=== PATIENT | female | born 1945 | race Caucasian/White ===

== ENCOUNTER 2019-09-09 05:14 | Emergency (ER) | payer MEDICARE ==
[2019-09-09] MEDS ORDERED: EPINEPHRINE INJ/PF 1 MG/1 ML AMPULE IM ONE (05:18)
--- NOTE | 2019-09-09 05:20 | ER Document Report ---
ED Allergic Reaction - General Chief Complaint: Allergic Reaction Stated Complaint: POSSIBLE ALLERGIC REACTION Time Seen by Provider: 09/09/19 05:18 Primary Care Provider: DMITRIY PATTON PA [Primary Care Provider] - Follow up as needed Notes: Patient is a 73-year-old female that comes emergency department for chief complaint of allergic reaction. She states she was sitting on her porch and she was stung by multiple insects, she states she started getting puffiness along her hands where she thinks she was stung, she also noticed a little bit on her ankles, she is also started getting puffiness around her eyes and started feeling tightness of the throat with difficulty swallowing. She states after she was stung initially she did not have the face or throat symptoms, she took 50 mg of Benadryl. A couple of hours later she took 100 mg of Benadryl. Coming by EMS she received ranitidine and Solu-Medrol. Patient denies difficulty breathing, she states she feels slightly better than she did earlier this evenin g but she still has a sensation of tightness in her throat and puffiness of the face. She states she has had similar reactions except for the throat with insect stings multiple times. She has a history of hypertension, denies any cardiac history, denies any medical history otherwise. - Related Data Allergies/Adverse Reactions: No Known Allergies Allergy (Unverified 09/09/19 05:28) Past Medical History - General Information source: Patient - Social History Smoking Status: Never Smoker Frequency of alcohol use: None Drug Abuse: None Lives with: Family Family History: Reviewed & Not Pertinent - Past Medical History Cardiac Medical History: Reports: Hx Hypertension - Immunizations Immunizations up to date: Yes Hx Diphtheria, Pertussis, Tetanus Vaccination: Yes Review of Systems - Review of Systems Constitutional: No symptoms reported EENT: See HPI Cardiovascular: No symptoms reported Respiratory: No symptoms reported Gastrointestinal: No symptoms reported Genitourinary: No symptoms reported Female Genitourinary: No symptoms reported Musculoskeletal: See HPI Skin: See HPI Hematologic/Lymphatic: No symptoms reported Neurological/Psychological: No symptoms reported Physical Exam - Vital signs Vitals: Temp 97.9 F 09/09/19 05:18 - Notes Notes: GENERAL: Alert, interacts well. No acute distress. HEAD: Normocephalic, atraumatic. EYES: Pupils equal, round, and reactive to light. Extraocular movements intact. Eyelids are slightly puffy, especially upper eyelids. ENT: Oral mucosa parched, tongue midline. Oropharynx unremarkable. Airway patent and uvula is normal. Nares patent, sinuses non-tender, ear canals unremarkable, TM's intact. NECK: Full range of motion. Supple. Trachea midline. No lymphadenopathy. LUNGS: Clear to auscultation bilaterally, no wheezes, rales, or rhonchi. No respiratory distress. Non-tender chest wall. HEART: Regular rate and rhythm. No murmur ABDOMEN: Soft, non-tender. Non-distended. Bowel sounds present in all 4 quadrants. GENITOURINARY: Deferred EXTREMITIES: Moves all 4 extremities spontaneously. No edema of upper and lower extremities, normal radial and dorsalis pedis pulses bilaterally. No cyanosis. BACK: no cervical, thoracic, lumbar midline tenderness. No saddle anesthesia, normal distal neurovascular exam. Moves all extremities in full range of motion. NEUROLOGICAL: Alert and oriented x3. Normal speech. Cranial nerves II through XII grossly intact. Strength 5/5 in all extremities. PSYCH: Normal affect, normal mood. SKIN: Warm, dry, normal turgor. No rashes or lesions noted. Specifically no urticaria. Course - Re-evaluation Re-evalutation: Airway appears patent, patient is tolerating her secretions, no wheezing, patient does not appear to be in distress. Patient does have puffy upper eyelids and she is complaining of a sensation of difficulty swallowing. No rashes noted, patient states her hands are puffy, no edema. Because of her difficulty swallowing with puffy eyelids patient was given epinephrine, patient has no cardiac history. Patient is already had a large amount of type I antihistamines, she has received ranitidine from EMS, she is received Solu-Medro l. Patient will be closely reevaluated. On initial reevaluation patient appears slightly improved in regards to her eyelids. She still states that it feels like it is hard to swallow but she denies swelling sensation. Patient is extremely parched after her large amount of Benadryl, I feel this is a component, she will continue to be observed. 09/09/19 06:50 This is patient's second reevaluation. Patient no longer has any tightness in her throat, her eyelids are no longer puffy, she still has slight puffiness in her cheeks that is slightly more obvious now that the rest of her symptoms have resolved, no other concerning findings. Patient will be monitored to make sure the epinephrine does not wear off and patient has return of symptoms, after this patient will be discharged with steroids and antihistamines. Patient states she already has an EpiPen at home for use if needed. 09/09/19 07:37 Patient has been here for about 2 and half hours now including after initial treatment. Facial swelling has essentially resolved, patient has not had any additional symptoms, patient has no current complaints. Patient is requesting to be discharged home, discussed medications, expectations, and return precautions in detail. Patient states appreciation and agreement with plan. - Vital Signs Vital signs: Temp Pulse Resp BP Pulse Ox 97.9 F 14 152/76 H 99 09/09/19 05:18 09/09/19 06:33 09/09/19 06:33 09/09/19 06:33 Discharge - Discharge Clinical Impression: Allergic reaction Qualifiers: Encounter type: initial encounter Qualified Code(s): T78.40XA - Allergy, unspecified, initial encounter Insect sting Qualifiers: Encounter type: initial encounter Injury intent: accidental or unintentional Qualified Code(s): T63.481A - Toxic effect of venom of other arthropod, accidental (unintentional), initial encounter Condition: Stable Disposition: HOME, SELF-CARE Additional Instructions: Your evaluation is consistent with an allergic reaction from the insect sting. Recommendation is to take the steroids as prescribed to completion. Also take the famotidine daily for 1 week along with your Zyrtec daily. Follow-up with primary care. In the event of a severe allergic reaction (swelling of the face, lips, tongue, throat, difficulty breathing, etc.), take your EpiPen and return to the emergency department immediately. Prescriptions: Prednisone [Deltasone 10 mg Tablet] 10 mg PO ASDIR PRN #21 tablet PRN Reason: Famotidine [Pepcid 20 mg Tablet] 20 mg PO BID #14 tablet Referrals: DMITRIY PATTON PA [Primary Care Provider] - Follow up as needed
[2019-09-09 07:57] VITALS: BP 162/83
== END 2019-09-09 08:40 | disposition home or self-care (01) ==
LOC: ER 05:14
DX: T63.481A Toxic effect of venom of other arthropod, accidental (unintentional), initial encounter (principal); R09.89 Other specified symptoms and signs involving the circulatory and respiratory systems; R22.0 Localized swelling, mass and lump, head; I10 Essential (primary) hypertension
CPT/HCPCS: 99284; 96372; J0171